=== PATIENT | female | born 1965 | race Caucasian/White ===

== ENCOUNTER 2020-04-29 18:23 | Emergency (ER) | payer SELFPAY ==
[~2020-04-29] VITALS: Ht 170.2 cm; Wt 83.5 kg
[2020-04-29 18:44] VITALS: BP 139/89
--- NOTE | 2020-04-29 18:44 | NUR ---
Pt ambulated to bed 8.
--- NOTE | 2020-04-29 19:01 | NUR ---
54/F C/O CP, SOB, AZEVEDO, NAUSEA X 5 DAYS. DENIES COUGH AND FEVER. DENIES TRAVEL OR SICK CONTACTS. RESPIRATIONS EVEN AND UNLABORED. APPEARS FATIGUED. HX- SARCOIDOSIS OF LUNGS, DIVERTICULITIS, GASTRITIS, MITRAL VALVE PROBLEM
--- NOTE | 2020-04-29 19:09 | NUR ---
Pt report RECEIVED FROM SANDER BATES. Transfer of care at this time.
--- NOTE | 2020-04-29 19:09 | NUR ---
REPORT TO JEFFERSON BOUCHER, TRANSFER OF CARE AT THIS TIME
[2020-04-29 19:40] LABS: BASOPHILS # (AUTO) 0.1 K/uL (0.00-0.22); BASOPHILS % (AUTO) 2.3 % (0.0-2.0); EOSINOPHILS # (AUTO) 0.1 K/uL (0-0.4); EOSINOPHILS % (AUTO) 1.4 % (0.0-4.0); HEMATOCRIT 39.5 % (36-48); HEMOGLOBIN 13.2 g/dL (12.0-16.0); LYMPHOCYTES # (AUTO) 2.8 K/uL (2.5-16.5); LYMPHOCYTES % (AUTO) 53.3 % (20.5-51.1); MEAN CORPUSCULAR HEMOGLOBIN 32 pg (27-31); MEAN CORPUSCULAR HGB CONC 34 g/dL (33-37); MEAN CORPUSCULAR VOLUME 96.7 fL (80-94); MONOCYTES # (AUTO) 0.3 K/uL (0.8-1.0); MONOCYTES % (AUTO) 6.3 % (1.7-9.3); NEUTROPHILS # (AUTO) 1.9 K/uL (1.8-7.7); NEUTROPHILS % (AUTO) 36.7 % (42.2-75.2); PLATELET COUNT (AUTO) 387 K/uL (140-450); RED BLOOD CELL COUNT(AUTO) 4.08 MIL/uL (4.20-5.40); RED CELL DISTRIBUTION WIDTH 13.3 % (11.6-13.7); WHITE BLOOD COUNT (AUTO) 5.2 K/uL (4.8-10.8)
[2020-04-29] MEDS ORDERED: ACETAMINOPHEN EXTRA STRENGTH 500 MG TAB PO ONE (19:50)
[2020-04-29] MEDS ORDERED: ONDANSETRON 4 MG/2 ML VIAL IVP ONE (19:50)
[2020-04-29] MEDS ORDERED: NACL 0.9% 1,000 ML IV ONE (19:50)
[2020-04-29 20:02] LABS: ANION GAP 12.6 (8-16); CARBON DIOXIDE 28.4 mmol/L (21-32); TOTAL BILIRUBIN 0.2 mg/dL (0.0-1.0)
[2020-04-29 20:03] LABS: ALBUMIN 3.5 g/dL (3.4-5.0)
[2020-04-29] MEDS ORDERED: MORPHINE SULFATE 2 MG/ML SYR IVP ONE (21:15)
[2020-04-29] MEDS ORDERED: DEXAMETHASONE 10 MG/ML VIAL IVP ONE (21:25)
--- NOTE | 2020-04-29 21:30 | NUR ---
PT RESTING IN BED IN POSITION OF COMFORT, BED LOW AND LOCKED, 1 SIDERAIL UP, VSS, WILL CONTINUE TO MONITOR
[2020-04-29 22:38] VITALS: BP 128/75
== END 2020-04-29 22:38 | disposition home or self-care (01) ==
LOC: MED 18:23
DX: R07.9 Chest pain, unspecified (principal); R06.02 Shortness of breath; M79.10 Myalgia, unspecified site; R05 Cough; Z88.6 Allergy status to analgesic agent; Z88.0 Allergy status to penicillin; Z88.2 Allergy status to sulfonamides
CPT/HCPCS: 36415; 71045; 80053; 81002; 83690; 83880; 84484; 85025; 93005; 96374; 96375; 99285; J1100; J2270; J2405; J7030; Q0092

== ENCOUNTER 2023-09-05 08:30 | Emergency (ER) | payer OTHER ==
[~2023-09-05] VITALS: Ht 175.3 cm; Wt 72.6 kg
[2023-09-05 08:50] VITALS: BP 130/90; PULSE 90; RESP 18; TEMP 97; O2SAT 98
[2023-09-05] MEDS ORDERED: MORPHINE SULFATE 4 MG/ML SYR IM ONE (09:10)
[2023-09-05] MEDS ORDERED: ACET-8905 PO (09:31)
[2023-09-05 10:30] VITALS: O2SAT 98
== END 2023-09-05 10:56 | disposition home or self-care (01) ==
LOC: MED 08:30
DX: M79.661 Pain in right lower leg (principal); I10 Essential (primary) hypertension; Z88.0 Allergy status to penicillin; Z79.1 Long term (current) use of non-steroidal anti-inflammatories (NSAID); Z79.899 Other long term (current) drug therapy; Z88.2 Allergy status to sulfonamides
CPT/HCPCS: 93971; 96372; 99285; J2270; Q0092